=== PATIENT | male | born 1980 ===

== ENCOUNTER 2023-12-31 20:59 | Outpatient (REF) | payer SELFPAY ==
--- OUTSIDE RECORDS SUMMARY | 2023-12-31 21:01 | XMS_ITS | Data Portability ---
Author Organization [place] - [facility] Address [address] [place] [address] Assessment No assessment recorded. Plan of Treatment Reminders Order Date Submit Date Provider Last Modified By Organization Details Last Modified Time Details Appointments New Patient 40 2023 02:10P M Not available Not available Not available Follow Up 20 2023 03:40P M Not available Not available Not available Lab urinalysi s, dipstick [address], [address] [place] [address], [address], 12/31/2023 15:10:40 CBC w/ diff - Collected in office, today 2023 [facility] (Registration ), [address] [place] [address] [place], [address], 12/31/2023 15:20:43 CMP, serum or plasma - Collected in office, today 2023 [facility] (Registration ), [address] [place] [address] [place], [address], 12/31/2023 15:20:43 Referral None recorded. Procedures None recorded. Surgeries None recorded. Imaging electroca rdiogram [address], [address] [place] [address], [address], 12/31/2023 16:57:14 Medication Orders omeprazol e 20 mg capsule,d elayed release 2023 024 CEFERINO [facility][id number], [address], [place], [place], [phone], 12/31/2023 16:10:17 Patient TargetsNo targets recorded. Patient InstructionsNo instructions recorded. Reason for Referral None Reported. Results Created Date Observation Date Name Description Value Unit Range Abnormal Flag Note LastModifiedBy Organization Detail LastModifiedTime 12/31/19 24 12/31/2023 urina lysis , dipst ick Leukocytes Negati ve Not Available [address], [address], 12/31/2023 14:45:44 12/31/19 24 12/31/2023 urina lysis , dipst ick Nitrite negati ve Not Available [address], [address], 12/31/2023 14:45:44 12/31/19 24 12/31/2023 urina lysis , dipst ick Urobilinogen .2 Not Available [address], [address], 12/31/2023 14:45:44 12/31/19 24 12/31/2023 urina lysis , dipst ick Protein Negati ve Not Available [address], [address], 12/31/2023 14:45:44 12/31/19 24 12/31/2023 urina lysis , dipst ick pH 6.0 Not Available [address], [address], 12/31/2023 14:45:44 12/31/19 24 12/31/2023 urina lysis , dipst ick Blood Negati ve Not Available [address], [address], 12/31/2023 14:45:44 12/31/19 24 12/31/2023 urina lysis , dipst ick Specific [place] 1.010 Not Available [address], [address], 12/31/2023 14:45:44 12/31/19 24 12/31/2023 urina lysis , dipst ick Ketone Negati ve Not Available [address], [address], 12/31/2023 14:45:44 12/31/19 24 12/31/2023 urina lysis , dipst ick Bilirubin Negati ve Not Available [address], [address], 12/31/2023 14:45:44 12/31/19 24 12/31/2023 urina lysis , dipst ick Glucose Negati ve Not Available [address], [address], 12/31/2023 14:45:44 12/31/19 24 12/31/2023 urina lysis , dipst ick Appearance Clear Not Available [address], [address], 12/31/2023 14:45:44 12/31/19 24 12/31/2023 urina lysis , dipst ick Color Pale Yellow Not Available [address], [address], 12/31/2023 14:45:44 12/31/19 24 12/31/2023 elect marissa villagomez am No observ ation record ed. [email or web address] [address], [address], 12/31/2023 16:57:14 Result Notes None recorded. Problems Name Problem SNOMED Code Status Onset Date Resolution Date Notes Provider Name and Address Organization Details Recorded Time Atypical chest pain 442201490 Active [address], [place], [address] , [facility] 16:52:45 Abdominal pain 84623211 Active [address], [facility] [address] , [facility] 16:55:02 Fatigue 78265061 Active [address], [facility] [address] , [facility] 16:55:06 Pain in bilateral legs 47936398574417 108 Active [address], [place], [address] , [facility] 16:55:19 Problem Notes None recorded. Procedures Surgical History None recorded. Imaging Results Imaging Date Name Status LastModified by Organization Details LastModified Time 12/31/2023 electrocardiogram completed [email or web address] [address], [address], 12/31/2023 16:57:14 Procedure Notes None recorded. Medical Equipment None Reported. Allergies No known drug allergies Medications Name Sig Start Date Stop Date Status Note LastModified by Organization Details LastModified Time omeprazole 20 mg capsule,brown yed release Take 1 capsule every day by oral route. 024 active Not Available Not Available Not Avai lable Vitals Date Recorded Body weight Body temperature Oxygen saturation Oxygen saturation in Arterial blood by Pulse oximetry Heart rate Systolic blood pressure Diastolic blood pressure Provider Name and Address Organization Details Last Updated DateTime 4 05232.3 4 g 98 [degF] 99 % 99 % 64 /min 128 mm[Hg] 86 mm[Hg] NEIL SCHUMACHER MA [facility]. 4 14:15:26 Social History None recorded. Functional Status None recorded. Mental Status None recorded. Family History Nothing Reported. Medical History No medical history recorded. Past Encounters Encounter ID Performer Location Encounter Start Date Encounter Closed Date Diagnosis/Indication Diagnosis SNOMED-CT Code Diagnosis ICD10 Code [id number] CHA SAEED MD [facility] [address] [place] [address] 12/31/2023 14:00:19 12/31/2023 15:31:09 Abdominal pain 43491657 R10.9 Atypical chest pain 1025 66105 R07.89 Fatigue 56878465 R53.83 Pain in bi lateral legs 0790927942 5386184 M79.604 M79.605 Health Concerns Section Related Observation LastModified by Organization Detai ls LastModified Time None Recorded Concern Status LastModified by Organization Details LastModified Time None Recorded Advance Directives Directive None Recorded Payers None recorded. Notes Date Note Type Note Provider Name and Address Organization Details Recorded Time 12/31/2023 text/html HPI Notes: Visit conducted in [place]. This is a new patient here for 2 to 3-month history of chest and abdominal pain. He reports pain in left anterior chest region that is not associated with activity, it comes and goes, without associated dyspnea, diaphoresis or nausea. He has had a longer history of epigastric discomfort that radiates to the back that is sometimes worse after eating, with bloating associated, and sometimes some discomfort in the lower abdomen. He denies changes in bowel movements, and specifically any melena, hematochezia, constipation or diarrhea, or pain with defecation. He reports some fatigue and some pains in his legs that seem to be concentrated in the knee region but no instability symptoms and no history of injury. No swelling or stiffness of the joints. Past medical history significant for gastritis treated several years ago in [place]. He takes no medications and has no known drug allergies. He lives with his and 2 children, works on a dairy farm. Is reasonably physically active and has a fairly healthy diet with rare alcohol use and no tobacco or other recreational substance use. He is worried about the possibility of cancer because a friend was recently diagnosed with leukemia. CHA SAEED MD [address], [place], [address], [facility]. 12/31/2023 16:57:38
--- OUTSIDE RECORDS SUMMARY | 2023-12-31 21:01 | XMS_ITS | Continuity of Care Document ---
Author Organization [place] - [facility] Address [address] [place] [address] Assessment No assessment recorded. Plan of Treatment Reminders Order Date Submit Date Provider Last Modified By Organization Details Last Modified Time Details Appointments New Patient 40 2023 02:10P M Not available Not available Not available Follow Up 20 2023 03:40P M Not available Not available Not available Lab urinalysi s, dipstick [address], [address] [place] [address], [address], 12/31/2023 15:10:40 CBC w/ diff - Collected in office, today 2023 [facility] (Registration ), [address] [place] [address] [place], [address], 12/31/2023 15:20:43 CMP, serum or plasma - Collected in office, today 2023 [facility] Laboratory (Registration ), [address] [place] [address] [place], [address], 12/31/2023 15:20:43 Referral None recorded. Procedures None recorded. Surgeries None recorded. Imaging electroca rdiogram [address], [address] [place] [address], [address], 12/31/2023 16:57:14 Medication Orders omeprazol e 20 mg capsule,d elayed release 2023 024 CEFERINO [facility] #[id number], [address], [place], [place], [id number], 12/31/2023 16:10:17 Patient TargetsNo targets recorded. Patient InstructionsNo instructions recorded. Reason for Referral None Reported. Results Created Date Observation Date Name Description Value Unit Range Abnormal Flag Note LastModifiedBy Organization Detail LastModifiedTime 12/31/19 24 12/31/2023 urina lysis , dipst ick Leukocytes Negati ve Not Available [address], [address], 12/31/2023 14:45:44 12/31/19 24 12/31/2023 urina lysis , dipst ick Nitrite negati ve Not Available [address], [address], 12/31/2023 14:45:44 12/31/19 24 12/31/2023 urina lysis , dipst ick Urobilinogen .2 Not Available [address], [address], 12/31/2023 14:45:44 12/31/19 24 12/31/2023 urina lysis , dipst ick Protein Negati ve Not Available [address], [address], 12/31/2023 14:45:44 12/31/19 24 12/31/2023 urina lysis , dipst ick pH 6.0 Not Available [address], [address], 12/31/2023 14:45:44 12/31/19 24 12/31/2023 urina lysis , dipst ick Blood Negati ve Not Available [address], [address], 12/31/2023 14:45:44 12/31/19 24 12/31/2023 urina lysis , dipst ick Specific [place] 1.010 Not Available [address], [address], 12/31/2023 14:45:44 12/31/19 24 12/31/2023 urina lysis , dipst ick Ketone Negati ve Not Available [address], [address], 12/31/2023 14:45:44 12/31/19 24 12/31/2023 urina lysis , dipst ick Bilirubin Negati ve Not Available [address], [address], 12/31/2023 14:45:44 12/31/19 24 12/31/2023 urina lysis , dipst ick Glucose Negati ve Not Available [address], [address], 12/31/2023 14:45:44 12/31/19 24 12/31/2023 urina lysis , dipst ick Appearance Clear Not Available [address], [address], 12/31/2023 14:45:44 12/31/19 24 12/31/2023 urina lysis , dipst ick Color Pale Yellow Not Available [address], [address], 12/31/2023 14:45:44 12/31/19 24 12/31/2023 seth ann diogr am No observ ation record ed. [address], [address], 12/31/2023 16:57:14 Result Notes None recorded. Problems Name Problem SNOMED Code Status Onset Date Resolution Date Notes Provider Name and Address Organization Details Recorded Time Atypical chest pain 648709492 Active [address], [place], [address] , [facility] 16:52:45 Abdominal pain 62151334 Active [address], [facility] [address] , [facility] 16:55:02 Fatigue 73975255 Active [address], [facility] [address], [facility] 16:55:06 Pain in bilateral legs 02993374372255 108 Active [address], [facility] [address] , [facility] 16:55:19 Problem Notes None recorded. Procedures Surgical History None recorded. Imaging Results Imaging Date Name Status LastModified by Organization Details LastModified Time 12/31/2023 electrocardiogram completed [email or web address] [address], [address], 12/31/2023 16:57:14 Procedure Notes None recorded. Medical [...] Address Organization Details Last Updated DateTime 4 58781.3 4 g 98 [degF] 99 % 99 % 64 /min 128 mm[Hg] 86 mm[Hg] NEIL SCHUMACHER MA [place] [facility]. 4 14:15:26 Social History None recorded. Functional Status None recorded. Mental Status None recorded. Family History Nothing Reported. Medical History No medical history recorded. Past Encounters Encounter ID Performer Location Encounter Start Date Encounter Closed Date Diagnosis/Indication Diagnosis SNOMED-CT Code Diagnosis ICD10 Code [id number] CHA SAEED MD [facility] [address] [place] [address] 12/31/2023 14:00:19 12/31/2023 15:31:09 Abdominal pain 29548385 R10.9 Atypical chest pain 1025 [address] R07.89 Fatigue 00478083 R53.83 Pain in bi lateral legs 1135830589 4435622 M79.604 M79.605 Health Concerns Section Related Observation LastModified by Organization Detai ls LastModified Time None Recorded Concern Status LastModified by Organization Details LastModified Time None Recorded Payers None recorded. Notes Date Note Type Note Provider Name and Address Organization Details Recorded Time 12/31/2023 text/html HPI Notes: Visit conducted in [place]. This is a new patient here for [...] leukemia. CHA SAEED MD [address], [place], [address], [facility]. 12/31/2023 16:57:38
[2023-12-31 22:53] LABS: Abs Immature Grans 0.02 10^3/uL (0.0-0.06); Absolute Basophil Count 0.07 10^3/uL (0.0-0.2); Absolute Lymphocyte Count 3.72 10^3/uL (1.2-3.4); Absolute Monocyte Count 0.71 10^3/uL (0.1-0.8); Absolute Neutrophil Count 4.85 10^3/uL (1.2-6.7); Basophils % 0.7 %; Eosinophils % 1.1 %; HCT 45.8 % (40.0-50.0); HGB 15.4 g/dL (13.5-17.5); Immature Grans % 0.2 %; Lymphocytes % 39.3 %; MCH 30.7 pg (27.0-33.0); MCHC 33.6 % (32.0-36.0); MCV 91 fL (80-95); MPV 10.3 fL (8.0-11.0); Monocytes % 7.5 %; Neutrophils % 51.2 %; Platelet Count 329 10^3/uL (130-400); RBC 5.02 10^6/uL (4.36-5.78); RDW 13.2 % (11.8-14.1); RDW-SD 43.9 fL; WBC 9.47 10^3/uL (4.4-10.8)
[2023-12-31 23:11] LABS: ALT 31 U/L (16-63); AST 32 U/L (15-37); Albumin 4.2 g/dL (3.4-5.0); Alkaline Phosphatase 134 U/L (46-116); Anion Gap 8.8 mmol/L (3-11); BUN 12 mg/dL (7-18); Bilirubin, Total 0.26 mg/dL (0.2-1.0); CO2 24.2 mmol/L (21.0-32.0); CREATININE 0.7 mg/dL (0.70-1.30); Calcium 9.2 mg/dL (8.5-10.1); Chloride 104 mmol/L (98-107); Estimated GFR 117.25 (mL/min/1.73m2); Glucose 104 mg/dL (74-106); Potassium 4.4 mmol/L (3.5-5.1); Sodium 137 mmol/L (136-145); Total Protein 8.4 g/dL (6.4-8.2)
== END 2023-12-31 21:00 | disposition home or self-care (01) ==
LOC: NCHCN 20:59
PROVIDERS: PCP Family Medicine; Visit Provider Family Medicine
DX: R10.9 Unspecified abdominal pain (principal)
CPT/HCPCS: 80053; 85025